=== PATIENT | female | born 1945 | race Caucasian/White ===

== ENCOUNTER 2016-07-27 12:50 | Outpatient (CLI) | payer MEDICARE ==
[2016-07-27 14:29] LABS: ALT (SGPT) 7 U/L (0-55); AST (SGOT) 17 U/L (5-34); Albumin 4.3 g/dL (3.4-4.8); Alkaline Phosphatase 115 U/L (40-150); Anion Gap 14 mmol/L (10-20); BUN (Urea Nitrogen) 18 mg/dL (9.8-20.1); Bilirubin, Total 0.3 mg/dL (0.2-1.2); Calc. Creatinine Clearance 0 mL/min (70-130); Calcium 10.4 mg/dL (7.8-10.44); Carbon Dioxide 25 mmol/L (23-31); Chloride 105 mmol/L (98-107); Estimated GFR-MDRD 55; Globulin 2.5 g/dL (2.4-3.5); Glucose 91 mg/dL (80-115); Potassium 4.6 mmol/L (3.5-5.1); Protein, Total 6.8 g/dL (5.8-8.1); Sodium 139 mmol/L (136-145)
[2016-07-27 15:12] LABS: #Basophils 0.1 thou/uL (0.0-0.2); #Eosinphils 0.6 thou/uL (0.0-0.7); #Lymphocytes 2.1 thou/uL (1.20-3.40); #Monocytes 0.6 thou/uL (0.11-0.59); %Basophils 0.9 % (0.0-1.0); %Eosinophils 6.7 % (0.0-10.0); %Lymphocytes 25.3 % (21.0-51.0); %Monocytes 7.5 % (0.0-10.0); %Neutrophils 59.6 % (42.0-75.0); Anisocytosis SLIGHT = 6-15 cells (100X) (0-5/hpf); Hemoglobin 10.1 g/dL (12.0-16.0); MDiff Complete? YES; Mean Corpuscular HGB CONC 30.3 g/dL (32.0-36.0); Mean Corpuscular Hemoglobin 23.5 pg (27.0-31.0); Mean Corpuscular Volume 77.8 fl (81.0-99.0); Mean Platelet Volume 8.8 fL (7.4-10.4); Microcytosis SLIGHT = 6-15 cells (100X) (0-5/hpf); PLT Morphology Comment Appears Adequate; Platelet Count 224 thou/uL (130-400); RBC Distribution Width 14.5 % (11.5-14.5); Red Blood Cell (RBC) Count 4.28 mill/uL (4.20-5.40); White Blood Cell (WBC) Count 8.4 thou/uL (4.8-10.8)
== END 2016-07-27 12:51 | disposition home or self-care (01) ==
LOC: NAVSJIPCSP 12:50
PROVIDERS: ATTEND Internal Medicine
DX: Z01.818 Encounter for other preprocedural examination (principal)
CPT/HCPCS: 36415; 80053; 85025

== ENCOUNTER 2016-08-16 13:30 | Outpatient (CLI) | payer MEDICARE ==
[2016-08-16 14:42] LABS: ALT (SGPT) 7 U/L (0-55); AST (SGOT) 20 U/L (5-34); Albumin 3.9 g/dL (3.4-4.8); Alkaline Phosphatase 109 U/L (40-150); Anion Gap 15 mmol/L (10-20); BUN (Urea Nitrogen) 16 mg/dL (9.8-20.1); Bilirubin, Direct 0.2 mg/dL (0.1-0.3); Bilirubin, Total 0.4 mg/dL (0.2-1.2); Calc. Creatinine Clearance 0 mL/min (70-130); Calcium 9.5 mg/dL (7.8-10.44); Carbon Dioxide 21 mmol/L (23-31); Chloride 106 mmol/L (98-107); Cholesterol 128 mg/dL (< 200 Desired); Estimated GFR-MDRD 56; Glucose 97 mg/dL (80-115); HDL Cholesterol 42 mg/dL (>60 Neg Risk); LDL Cholesterol, Calculated 71 mg/dL; Lipase 21 U/L (8-78); Potassium 3.2 mmol/L (3.5-5.1); Protein, Total 6.4 g/dL (5.8-8.1); Sodium 139 mmol/L (136-145); Triglycerides 77 mg/dL (Less than 150)
[2016-08-16 16:41] LABS: Band 9 % (5-11); Eosinophils 1 % (0-10); Hemoglobin 9.5 g/dL (12.0-16.0); Lymphocytes 23 % (21-51); MDiff Complete? YES; Mean Corpuscular HGB CONC 30.2 g/dL (32.0-36.0); Mean Corpuscular Hemoglobin 22.5 pg (27.0-31.0); Mean Corpuscular Volume 74.5 fl (81.0-99.0); Mean Platelet Volume 9.6 fL (7.4-10.4); Microcytosis SLIGHT = 6-15 cells (100X) (0-5/hpf); Monocytes 1 % (0-10); Myelocyte 1 % (0-0); Neutrophil 63 % (42-75); Platelet Count 198 thou/uL (130-400); Polychromasia SLIGHT = 2-3 cells (100X) (0-2/hpf); Red Blood Cell (RBC) Count 4.21 mill/uL (4.20-5.40); White Blood Cell (WBC) Count 6.9 thou/uL (4.8-10.8)
[2016-08-16 21:20] LABS: Bilirubin Negative (Negative); Blood, Urine Negative (Negative); Glucose, Urine (Dipstick) Negative (Negative); Leukocyte Moderate (Negative); Nitrite Positive (Negative); Protein, Urine (Dipstick) Negative (Neg-Trace); Specific Gravity, Urine 1.015 (1.005-1.030); Urobilinogen 0.2 mg/dL (0.2-1.0); pH, Urine 5.5 (5.0-9.0)
[2016-08-16 21:21] LABS: Clarity SL HAZY (Clear)
[2016-08-16 21:53] LABS: Bacteria/HPF 4+ HPF (None Seen); RBC/HPF 0-3 HPF (0-3); Renal Epithelial 0-3 HPF (0-3)
== END 2016-08-16 13:31 | disposition home or self-care (01) ==
LOC: NAVSJIPCSP 13:30 → NAV LAB 13:31
PROVIDERS: ATTEND Nurse Practitioner Family
DX: R19.7 Diarrhea, unspecified (principal); R11.0 Nausea; R39.9 Unspecified symptoms and signs involving the genitourinary system
CPT/HCPCS: 80048; 80061; 80076; 81003; 81015; 83690; 85025; 87086

== ENCOUNTER 2016-08-17 12:17 | Emergency (ER) | payer MEDICARE ==
[2016-08-17] MEDS ORDERED: Ondansetron HCl/PF 4 MG/2 ML Vial ONE (12:39)
[2016-08-17] MEDS ORDERED: Sodium Chloride 0.9% 1,000 ML ONE (12:39)
[2016-08-17] MEDS ORDERED: Promethazine HCl 25 MG/ML VIAL ONE (12:58)
[2016-08-17 13:04] LABS: Anion Gap 17 mmol/L (10-20); Globulin 2.8 g/dL (2.4-3.5)
[2016-08-17 13:35] LABS: ALT (SGPT) 11 U/L (0-55); AST (SGOT) 37 U/L (5-34); Alkaline Phosphatase 145 U/L (40-150); BUN (Urea Nitrogen) 32 mg/dL (9.8-20.1); Bilirubin, Total 0.5 mg/dL (0.2-1.2); Calc. Creatinine Clearance 0 mL/min (70-130); Calcium 9.7 mg/dL (7.8-10.44); Carbon Dioxide 22 mmol/L (23-31); Chloride 103 mmol/L (98-107); Estimated GFR-MDRD 34; Glucose 136 mg/dL (80-115); Magnesium 1.9 mg/dL (1.6-2.6); Phosphorus 3.7 mg/dL (2.3-4.7); Potassium 3.6 mmol/L (3.5-5.1); Protein, Total 6.8 g/dL (5.8-8.1); Sodium 138 mmol/L (136-145)
[2016-08-17] MEDS ORDERED: Sodium Chloride 0.9% 0 ML ONE (13:39)
[2016-08-17] MEDS ORDERED: Sodium Chloride 0.9% 100 ML ONE (13:39)
[2016-08-17] MEDS ORDERED: Prochlorperazine 10 MG/2 ML VIAL ONE (13:39)
[2016-08-17 13:55] LABS: Mean Corpuscular HGB CONC 30.2 g/dL (32.0-36.0); Mean Corpuscular Hemoglobin 22.4 pg (27.0-31.0); Mean Corpuscular Volume 74.3 fl (81.0-99.0); Mean Platelet Volume 9.4 fL (7.4-10.4); Platelet Count 208 thou/uL (130-400); RBC Distribution Width 14.9 % (11.5-14.5); Red Blood Cell (RBC) Count 4.45 mill/uL (4.20-5.40); White Blood Cell (WBC) Count 7.7 thou/uL (4.8-10.8)
[2016-08-17 13:56] LABS: Band 9 % (5-11); Lymphocytes 15 % (21-51); MDiff Complete? YES; Monocytes 8 % (0-10); Neutrophil 68 % (42-75)
[2016-08-17 13:57] LABS: Anisocytosis SLIGHT = 6-15 cells (100X) (0-5/hpf); Hypochromia SLIGHT = 6-15 cells (100X) (0-5/hpf); Microcytosis SLIGHT = 6-15 cells (100X) (0-5/hpf); PLT Morphology Comment Appears Adequate
--- NOTE | 2016-08-17 14:10 | RAD ---
ACUTE ABDOMINAL SERIES FIVE VIEWS: History: New onset nausea, vomiting and diarrhea with fever and chills. FINDINGS: There is abnormal air filled distention of loops of bowel within the abdomen. No free air is seen be neath the hemidiaphragms. Frontal view of chest reveals no lobar consolidation or significant effusi on. There is mild enlargement of the cardiac silhouette. Electronic device overlies the abdomen and pelvis with leads overlying the thoracic spine. IMPRESSION: Evidence of bowel obstruction by radiographic imaging. Recommend follow up with CT for further asses sment. Code T POS: [facility]
[2016-08-17] MEDS ORDERED: Lidocaine Viscous Sol 2% 15 ml UD Cup ONE (14:46)
[2016-08-17] MEDS ORDERED: Benzocaine 20% Spray 60 ML CAN ONE (14:46)
--- NOTE | 2016-08-17 14:59 | CT ---
CT ABDOMEN AND PELVIS WITHOUT IV CONTRAST: Date: 08/17/16 Multiple axial tomograms obtained through abdomen and pelvis without IV enhancement. HISTORY: Nausea and vomiting. Fever and chills. FINDINGS: Images through the lung bases appear clear. Liver and spleen appear unremarkable. Post cholecystectomy changes are noted. There is a small slidi ng diaphragmatic hernia. Stomach and duodenum appear unremarkable. Stomach is distended from ingeste d material. Adrenal glands appear normal. There is a 4.8 cm cyst superior right kidney. There are other low density areas involving the mid an d inferior right kidney which suggests cysts but these are poorly defined and were poorly characteri zed on this unenhanced exam. There is a low density area involving the medial upper left kidney mariana uring in the 3.0 cm range, which have densities upper normal for cystic lesion. Other low densities areas in the left kidney probably represent cysts, but are not well characterized or delineated. There is no hydronephrosis. No evidence of urinary tract calculus. The bladder is distended. There are dilated loops of small bowel with several of these loops measuring up to 4.0 cm diameter. The distal small bowel loops are more decompressed measuring in the 2.0 cm range. Findings are suspi cious for partial small bowel obstruction in mid small bowel. There appears to be evidence of a gastric bypass type procedure. There is radiopaque suture seen at the EG junction and appears to be a jejunal anastomosis at this location. The colon is predominantly nondistended and not well evaluated. The aorta is calcified, but normal caliber. Images through the pelvis show evidence of hysterectomy. Degenerative spine changes are seen with severe facet hypertrophy resulting in central canal stenosi s in the lower lumbar spine. IMPRESSION: 1. Evidence of gastric bypass type procedure. The stomach is distended with ingested material. Ther e is dilatation of proximal and mid small bowel loops with decompression of more distal small bowel loops suggesting a mid small bowel obstruction. 2. There are numerous low density lesions involving both kidneys suggesting bilateral cysts, althou gh these are poorly defined and characterized. There is at least one hyperdense exophytic lesion dimitrios suring 1.0 cm from the superior posterior left kidney which is a complex lesion. Recommend further e valuation with contrasted CT scan of abdomen to further define these renal lesions. 3. 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 Ep idural leads are seen in place with an electronic device implanted under the skin of the posterior l eft flank region. POS: [facility]
--- NOTE | 2016-08-17 16:07 | RAD ---
PORTABLE AP CHEST X-RAY: 08/17/16 HISTORY: Nasogastric tube placement. FINDINGS: Compared to study on 08/17/16 at 1311 hours. The provided images are underpenetrated which limits detail. There is partial visualization of the d orsal column stimulator leads overlying the thoracic spine. There is a radiopaque density overlying the mediastinum, but this is not well evaluated. This may represent the nasogastric tube, but this c annot be confirmed based on this examination. Repeat imaging is recommended given that the distal po rtion of the nasogastric tube is not visualized. The cardiac silhouette is magnified by projection but does appear mildly enlarged. Pulmonary vascula ture is within normal limits. No other interval change. IMPRESSION: Suboptimal examination for evaluation of the nasogastric tube due to the technique of study. Repeat imaging is recommended in attempt to better evaluate the nasogastric tube position. POS: [facility]
--- NOTE | 2016-08-17 17:12 | RAD ---
FRONTAL VIEW ABDOMEN 08/17/16 COMPARISON: Chest radiograph earlier same day. CLINICAL HISTORY: Tube evaluation. FINDINGS: Prior enteric catheter is not visualized. There are radiopaque leads overlying the upper abdomen, no t further localized. Bowel distention is present, as is depicted on preceding CT exam, same day. IMPRESSION: Prior enteric catheter overlying the chest is not demonstrated. Correlate for interval removal. There are radiopaque leads overlying the upper abdomen, not further characterized on the basis of th is exam. POS: [facility]
== END 2016-08-17 16:44 | disposition short-term general hospital (02) ==
LOC: NAV ERS 12:17
DX: K56.60 Unspecified intestinal obstruction (principal); D64.9 Anemia, unspecified; N28.9 Disorder of kidney and ureter, unspecified; I10 Essential (primary) hypertension; Z79.899 Other long term (current) drug therapy
CPT/HCPCS: 71010; 74000; 74022; 74176; 80053; 83735; 84100; 85025; 94760; 96365; 96367; 96375; J0780; J2270; J2405; J2550; J7050

== ENCOUNTER 2016-09-07 11:01 | Outpatient (CLI) | payer MEDICARE ==
[2016-09-07 13:13] LABS: ALT (SGPT) Less than 6 U/L (8-55); AST (SGOT) 14 U/L (5-34); Albumin 4.1 g/dL (3.4-4.8); Alkaline Phosphatase 97 U/L (40-150); Anion Gap 19 mmol/L (10-20); BUN (Urea Nitrogen) 15 mg/dL (9.8-20.1); Bilirubin, Total 0.3 mg/dL (0.2-1.2); Calc. Creatinine Clearance 0 mL/min (70-130); Calcium 10.4 mg/dL (7.8-10.44); Carbon Dioxide 21 mmol/L (23-31); Chloride 107 mmol/L (98-107); Estimated GFR-MDRD 55; Globulin 2.8 g/dL (2.4-3.5); Glucose 91 mg/dL (80-115); Potassium 3.9 mmol/L (3.5-5.1); Protein, Total 6.9 g/dL (6.0-8.3); Sodium 143 mmol/L (136-145)
[2016-09-07 13:27] LABS: #Basophils 0.1 thou/uL (0.0-0.2); #Eosinphils 0.9 thou/uL (0.0-0.7); #Lymphocytes 1.9 thou/uL (1.20-3.40); #Monocytes 0.6 thou/uL (0.11-0.59); #Neutrophils 4.6 thou/uL (1.40-6.50); %Basophils 0.8 % (0.0-1.0); %Eosinophils 11.1 % (0.0-10.0); %Lymphocytes 23.7 % (21.0-51.0); %Monocytes 7.6 % (0.0-10.0); %Neutrophils 56.7 % (42.0-75.0); Anisocytosis SLIGHT = 6-15 cells (100X) (0-5/hpf); Hemoglobin 9.2 g/dL (12.0-16.0); MDiff Complete? YES; Mean Corpuscular Hemoglobin 21.6 pg (27.0-31.0); Mean Corpuscular Volume 74.5 fl (81.0-99.0); Mean Platelet Volume 7.6 fL (7.4-10.4); Microcytosis SLIGHT = 6-15 cells (100X) (0-5/hpf); PLT Morphology Comment Appears Adequate; Platelet Count 264 thou/uL (130-400); RBC Distribution Width 15.3 % (11.5-14.5); Red Blood Cell (RBC) Count 4.28 mill/uL (4.20-5.40); White Blood Cell (WBC) Count 8.1 thou/uL (4.8-10.8)
== END 2016-09-07 11:02 | disposition home or self-care (01) ==
LOC: NAVSJIPCSP 11:01
PROVIDERS: ATTEND Internal Medicine
DX: D50.9 Iron deficiency anemia, unspecified (principal); R00.1 Bradycardia, unspecified; I10 Essential (primary) hypertension
CPT/HCPCS: 36415; 80053; 82728; 85025

== ENCOUNTER 2016-11-14 11:22 | Outpatient (CLI) | payer MEDICARE ==
[2016-11-14 13:20] LABS: Vitamin D, 25 Hydroxy 35.2 ng/ml (> 30.0)
[2016-11-15 19:33] LABS: Ferritin 14.9 ng/mL (10-291)
== END 2016-11-14 11:23 | disposition home or self-care (01) ==
LOC: NAVSJIPCSP 11:22
PROVIDERS: ATTEND Internal Medicine
DX: Z48.815 Encounter for surgical aftercare following surgery on the digestive system (principal); Z98.84 Bariatric surgery status
CPT/HCPCS: 36415; 82306; 82728

== ENCOUNTER 2018-04-21 10:10 | Emergency (ER) | payer MEDICARE ==
[2018-04-21] MEDS ORDERED: Ondansetron PF 4 MG/2 ML Vial ONE ×2 (10:43→12:23)
[2018-04-21] MEDS ORDERED: Sodium Chloride 0.9% 1,000 ML ONE (10:43)
[2018-04-21 11:06] LABS: Bilirubin Negative (Negative); Blood, Urine Negative (Negative); Clarity Clear (Clear); Glucose, Urine (Dipstick) Negative (Negative); Leukocyte Large (Negative); Nitrite Negative (Negative); Protein, Urine (Dipstick) Negative (Neg-Trace); Urobilinogen 0.2 mg/dL (0.2-1.0); pH, Urine 5.5 (5.0-9.0)
[2018-04-21 11:12] LABS: #Basophils 0.1 thou/uL (0.0-0.2); #Eosinphils 0.2 thou/uL (0.0-0.7); #Lymphocytes 1.2 thou/uL (1.20-3.40); #Monocytes 0.8 thou/uL (0.11-0.59); #Neutrophils 7.7 thou/uL (1.40-6.50); %Basophils 0.9 % (0.0-1.0); %Eosinophils 2.5 % (0.0-10.0); %Lymphocytes 11.6 % (21.0-51.0); %Monocytes 7.8 % (0.0-10.0); %Neutrophils 77.3 % (42.0-75.0); Hemoglobin 11.9 g/dL (12.0-16.0); Mean Corpuscular HGB CONC 31.1 g/dL (32.0-36.0); Mean Corpuscular Hemoglobin 27.2 pg (27.0-31.0); Mean Corpuscular Volume 87.3 fL (78.0-98.0); Platelet Count 226 thou/uL (130-400); RBC Distribution Width 13.7 % (11.5-14.5); Red Blood Cell (RBC) Count 4.38 mill/uL (4.20-5.40)
[2018-04-21 11:13] LABS: Bacteria/HPF 1+ HPF (None Seen); RBC/HPF None Seen HPF (0-3); Squamous Epithelial 0-3 HPF (0-3)
[2018-04-21 11:27] LABS: ALT (SGPT) 6 U/L (8-55); AST (SGOT) 17 U/L (5-34); Albumin 4.1 g/dL (3.4-4.8); Alkaline Phosphatase 126 U/L (40-150); Anion Gap 15 mmol/L (10-20); BUN (Urea Nitrogen) 24 mg/dL (9.8-20.1); Bilirubin, Total 0.4 mg/dL (0.2-1.2); Calc. Creatinine Clearance 0 mL/min (70-130); Calcium 10.3 mg/dL (7.8-10.44); Carbon Dioxide 18 mmol/L (23-31); Chloride 110 mmol/L (98-107); Estimated GFR-MDRD 51; Globulin 2.7 g/dL (2.4-3.5); Glucose 98 mg/dL (83-110); Potassium 3.7 mmol/L (3.5-5.1); Protein, Total 6.8 g/dL (6.0-8.3); Sodium 139 mmol/L (136-145)
[2018-04-21] MEDS ORDERED: Levofloxacin 500 mg/D5W 100 ml Premix Bag ONE (12:15)
--- NOTE | 2018-04-21 13:19 | RAD ---
CHEST 2 VIEWS: HISTORY: Vomiting. Chest pain. COMPARISON: 08/17/2016. FINDINGS: Cardiac silhouette is magnified by projection. Pulmonary vasculature upper limits of normal. Medias tinum is midline with aortic calcification. No lobar consolidation, pneumothorax, or pleural fluid. Postoperative changes right shoulder. IMPRESSION: 1. Atherosclerosis. 2. No active cardiopulmonary abnormalities are otherwise demonstrated. POS: [facility]
--- NOTE | 2018-04-21 13:20 | RAD ---
ABDOMEN 2 VIEWS: HISTORY: Abdominal pain. Vomiting. FINDINGS: Air and fluid are present throughout the colon. The air fluid levels on the upright view are consist ent with colon. No evidence of free intraperitoneal gas. Metallic clips throughout the abdomen. Ph leboliths project over the pelvis. IMPRESSION: Fluid throughout the colon. Otherwise, nonspecific bowel gas pattern. POS: [facility]
== END 2018-04-21 12:57 | disposition home or self-care (01) ==
LOC: NAV ERS 10:10
DX: K52.9 Noninfective gastroenteritis and colitis, unspecified (principal); I10 Essential (primary) hypertension; Z79.899 Other long term (current) drug therapy; Z79.82 Long term (current) use of aspirin
CPT/HCPCS: 71046; 74019; 80053; 81003; 81015; 82274; 83690; 85025; 87045; 87046; 87077; 87086; 87186; 87328; 87329; 87449; 87899; 96361; 96374; 96375; 96376; J1956; J2405; J7050

== ENCOUNTER 2020-07-05 11:27 | Emergency (ER) | payer MEDICARE ==
[2020-07-05 12:26] LABS: Bilirubin Negative (Negative); Blood, Urine Negative (Negative); Clarity Clear (Clear); Glucose, Urine (Dipstick) Negative (Negative); Ketone, Urine Negative (Negative); Leukocyte Trace (Negative); Nitrite Negative (Negative); Protein, Urine (Dipstick) Negative (Neg-Trace); Specific Gravity, Urine 1.015 (1.005-1.030); Urobilinogen 0.2 mg/dL (Less than 2); pH, Urine 5.5 (5.0-9.0)
[2020-07-05 12:49] LABS: #Basophils 0.1 thou/uL (0.0-0.2); #Lymphocytes 1.8 thou/uL (1.20-3.40); #Monocytes 0.3 thou/uL (0.11-0.59); #Neutrophils 10.8 thou/uL (1.40-6.50); %Basophils 0.6 % (0.0-1.0); %Eosinophils 0.1 % (0.0-10.0); %Lymphocytes 13.7 % (21.0-51.0); %Monocytes 2.4 % (0.0-10.0); %Neutrophils 83.3 % (42.0-75.0); Mean Corpuscular HGB CONC 31.5 g/dL (32.0-36.0); Mean Corpuscular Hemoglobin 29.6 pg (27.0-31.0); Mean Corpuscular Volume 93.9 fL (78.0-98.0); Mean Platelet Volume 7.4 fL (7.4-10.4); Platelet Count 198 thou/uL (130-400); RBC Distribution Width 17.6 % (11.5-14.5); Red Blood Cell (RBC) Count 1.68 mill/uL (4.20-5.40)
[2020-07-05 12:56] LABS: ALT (SGPT) 6 U/L (8-55); AST (SGOT) 14 U/L (5-34); Albumin 3.2 g/dL (3.4-4.8); Alkaline Phosphatase 73 U/L (40-110); Anion Gap 16 mmol/L (10-20); BUN (Urea Nitrogen) 59 mg/dL (9.8-20.1); Bilirubin, Total 0.2 mg/dL (0.2-1.2); CK (CPK) 29 U/L (29-168); Calc. Creatinine Clearance 0 mL/min (70-130); Calcium 9.6 mg/dL (7.8-10.44); Carbon Dioxide 14 mmol/L (23-31); Chloride 117 mmol/L (98-107); Globulin 1.8 g/dL (2.4-3.5); Glucose 125 mg/dL (83-110); Sodium 143 mmol/L (136-145)
[2020-07-05] MEDS ORDERED: Sodium Chloride 0.9% 100 ML ONE (13:00)
[2020-07-05] MEDS ORDERED: cefTRIAXone\\ROCEPHIN 1 GM VIAL ONE (13:00)
[2020-07-05 13:01] LABS: Bacteria/HPF Rare-Few HPF (None Seen); RBC/HPF 0-3 HPF (0-3)
[2020-07-05] MEDS ORDERED: Sodium Chloride 0.9% 1,000 ML ONE (13:10)
[2020-07-05 15:21] LABS: Lactic Acid 2.6 mmol/L (0.5-2.2)
== END 2020-07-05 13:59 | disposition short-term general hospital (02) ==
LOC: NAV ERS 11:27
DX: A41.9 Sepsis, unspecified organism (principal); J18.9 Pneumonia, unspecified organism; K92.2 Gastrointestinal hemorrhage, unspecified; I10 Essential (primary) hypertension; Z79.82 Long term (current) use of aspirin; Z79.899 Other long term (current) drug therapy
CPT/HCPCS: 51701; 71045; 80053; 81003; 81015; 82550; 83605; 83880; 84484; 85025; 86850; 86900; 86901; 87040; 87077; 87086; 87149; 87804; 93005; 96365; 96367; 96375; J0696; J3490; J7050

== ENCOUNTER 2020-12-15 22:00 | Emergency (ER) | payer MEDICARE ==
[~2020-12-15 22:00] MED LIST: Iopamidol 370 76% 100 ML VIAL ONE
[2020-12-15 23:22] LABS: Hemoglobin 11.1 g/dL (12.0-16.0); Mean Corpuscular HGB CONC 29.1 g/dL (32.0-36.0); Mean Corpuscular Hemoglobin 24.3 pg (27.0-31.0); Mean Corpuscular Volume 83.4 fL (78.0-98.0); Mean Platelet Volume 7.8 fL (7.4-10.4); Platelet Count 204 thou/uL (130-400); RBC Distribution Width 19.9 % (11.5-14.5); Red Blood Cell (RBC) Count 4.59 mill/uL (4.20-5.40); White Blood Cell (WBC) Count 8.4 thou/uL (4.8-10.8)
[2020-12-15 23:33] LABS: ALT (SGPT) 9 U/L (8-55); AST (SGOT) 22 U/L (5-34); Albumin 3.9 g/dL (3.4-4.8); Alkaline Phosphatase 107 U/L (40-110); Anion Gap 13 mmol/L (10-20); BUN (Urea Nitrogen) 16 mg/dL (9.8-20.1); Bilirubin, Total 0.3 mg/dL (0.2-1.2); Calc. Creatinine Clearance 0 mL/min (70-130); Calcium 10.3 mg/dL (7.8-10.44); Carbon Dioxide 21 mmol/L (23-31); Chloride 105 mmol/L (98-107); Globulin 3.1 g/dL (2.4-3.5); Glucose 116 mg/dL (83-110); Lipase 69 U/L (8-78); Potassium 4.1 mmol/L (3.5-5.1); Sodium 135 mmol/L (136-145)
[2020-12-15] MEDS ORDERED: Morphine 4 MG/ML VIAL ONE (23:38)
[2020-12-15] MEDS ORDERED: Promethazine HCl 25 MG/ML VIAL ONE (23:39)
[2020-12-15] MEDS ORDERED: Sodium Chloride 0.9% 1,000 ML ONE (23:39)
[2020-12-15 23:54] LABS: #Basophils 0.1 thou/uL (0.0-0.2); #Eosinphils 0.7 thou/uL (0.0-0.7); #Lymphocytes 1.4 thou/uL (1.20-3.40); #Monocytes 0.8 thou/uL (0.11-0.59); #Neutrophils 5.5 thou/uL (1.40-6.50); %Basophils 0.7 % (0.0-1.0); %Lymphocytes 16.6 % (21.0-51.0); %Monocytes 9.2 % (0.0-10.0); %Neutrophils 65.4 % (42.0-75.0); Hypochromia SLIGHT = 6-15 cells (100X) (0-5/hpf); MDiff Complete? YES; Platelet Morphology Comment Appears Adequate
[2020-12-16 00:46] LABS: Bilirubin Negative (Negative); Blood, Urine Trace (Negative); Glucose, Urine (Dipstick) Negative (Negative); Ketone, Urine Negative (Negative); Leukocyte Large (Negative); Nitrite Positive (Negative); Protein, Urine (Dipstick) Negative (Neg-Trace); Specific Gravity, Urine 1.015 (1.005-1.030); Urobilinogen 0.2 mg/dL (Less than 2); pH, Urine 5.5 (5.0-9.0)
[2020-12-16 00:47] LABS: Clarity Hazy (Clear)
[2020-12-16 00:52] LABS: RBC/HPF 0-3 HPF (0-3)
[2020-12-16 00:53] LABS: Bacteria/HPF 3+ HPF (None Seen); Squamous Epithelial None Seen HPF (0-3)
[2020-12-16] MEDS ORDERED: cloNIDine 0.1 MG TAB ONE (02:16)
[2020-12-16] MEDS ORDERED: Pantoprazole 40 MG VIAL ONE (02:17)
[2020-12-16] MEDS ORDERED: Milk Of Magnesia 30 ML UDCUP ONE (02:17)
[2020-12-16] MEDS ORDERED: Lidocaine Viscous Sol 2% 15 ml UD Cup ONE (02:17)
== END 2020-12-16 02:35 | disposition home or self-care (01) ==
LOC: NAV ERS 22:00
DX: R10.10 Upper abdominal pain, unspecified (principal); R19.7 Diarrhea, unspecified; I10 Essential (primary) hypertension; Z79.899 Other long term (current) drug therapy
CPT/HCPCS: 74177; 80053; 81003; 81015; 83690; 84484; 85025; 93005; 96374; 96375; C9113; J2270; J2550; J7050; Q9967

== ENCOUNTER 2020-12-31 10:53 | Outpatient (CLI) | payer MEDICARE | END 2020-12-31 10:54 | disposition home or self-care (01) | LOC: NAV RAD 10:53 | DX: M46.1 Sacroiliitis, not elsewhere classified (principal); M47.818 Spondylosis without myelopathy or radiculopathy, sacral and sacrococcygeal region; M16.0 Bilateral primary osteoarthritis of hip | CPT/HCPCS: 72170 ==

== ENCOUNTER 2021-03-25 04:16 | Observation (INO) | payer MEDICARE ==
[2021-03-25 04:54] LABS: Hemoglobin 10.7 g/dL (12.0-16.0); Mean Corpuscular Volume 87.3 fL (78.0-98.0); Red Blood Cell (RBC) Count 4.15 mill/uL (4.20-5.40); White Blood Cell (WBC) Count 8.1 thou/uL (4.8-10.8)
[2021-03-25 04:55] LABS: #Monocytes 0.5 thou/uL (0.11-0.59); #Neutrophils 6.5 thou/uL (1.40-6.50); %Basophils 0.5 % (0.0-1.0); %Eosinophils 0.3 % (0.0-10.0); %Lymphocytes 12.7 % (21.0-51.0); %Monocytes 6.3 % (0.0-10.0); %Neutrophils 80.2 % (42.0-75.0); Manual Diff?? NO; Mean Corpuscular HGB CONC 29.6 g/dL (32.0-36.0); Mean Corpuscular Hemoglobin 25.9 pg (27.0-31.0); Mean Platelet Volume 6.9 fL (7.4-10.4); Platelet Count 249 thou/uL (130-400); RBC Distribution Width 14.3 % (11.5-14.5)
[2021-03-25 05:00] LABS: INR-International Normal Ratio 1.2; PTT 34.8 sec (22.9-36.1); Prothrombin Time 15.6 sec (12.0-14.7)
[2021-03-25 05:01] LABS: ALT (SGPT) 8 U/L (8-55); AST (SGOT) 18 U/L (5-34); Albumin 3.8 g/dL (3.4-4.8); Alkaline Phosphatase 99 U/L (40-110); Anion Gap 12 mmol/L (10-20); BUN (Urea Nitrogen) 17 mg/dL (9.8-20.1); Bilirubin, Total 0.4 mg/dL (0.2-1.2); Calc. Creatinine Clearance 0 mL/min (70-130); Calcium 10.3 mg/dL (7.8-10.44); Carbon Dioxide 23 mmol/L (23-31); Chloride 107 mmol/L (98-107); Glucose 133 mg/dL (83-110); Potassium 3.8 mmol/L (3.5-5.1); Protein, Total 6.8 g/dL (5.8-8.1); Sodium 138 mmol/L (136-145)
[2021-03-25] MEDS ORDERED: Amoxicillin/Potassium Clav 875 MG TAB ONE (05:22)
[2021-03-25 05:29] LABS: SARS-CoV-2 NAA Rapid Test Not Detected (NotDetected)
[2021-03-25] MEDS ORDERED: Nitroglycerin 2% Ointment 1 INCH/1 GM Packet ONE (05:37)
[2021-03-25 06:13] VITALS: BMI 27.3
[2021-03-25] MEDS ORDERED: Acetaminophen 325 MG TAB PO PRN (06:15)
[2021-03-25 08:02] VITALS: TEMP 98.5
[2021-03-25] MEDS ORDERED: Amoxicillin/Potassium Clav 875 MG TAB PO SCH (09:00)
[2021-03-25] MEDS ORDERED: Nitroglycerin 2% Ointment 1 INCH/1 GM Packet TOP SCH (12:00)
[2021-03-25 12:29] VITALS: BP 187/83
[2021-03-25] MEDS: cloNIDine 0.1 MG TAB PO SCH ×2 (13:54→13:57)
[2021-03-25] MEDS ORDERED: cloNIDine 0.1 MG TAB PO SCH (21:00)
[2021-03-25] MEDS ORDERED: Flecainide 50 MG TAB PO SCH (21:00)
[2021-03-25] MEDS ORDERED: Apixaban 5 MG TAB PO SCH (21:00)
[2021-03-25] MEDS ORDERED: Lisinopril 20 MG TAB PO SCH (21:00)
[2021-03-26] MEDS ORDERED: Calcium Carbonate 600 MG + Vit D TAB PO SCH (09:00)
[2021-03-26] MEDS ORDERED: Furosemide 40 MG TAB PO SCH (09:00)
[2021-03-26] MEDS ORDERED: Aspirin 81 mg Enteric Coated Tablet PO SCH (09:00)
[2021-03-26] MEDS ORDERED: Atenolol 25 MG TAB PO SCH (09:00)
[2021-03-28] MEDS ORDERED: Cyanocobalamin (Vitamin B-12) 1,000 MCG TAB PO SCH (09:00)
== END 2021-03-25 14:15 | disposition home or self-care (01) ==
LOC: NAV ERS 04:16 → NAV ACUTE 05:49
PROVIDERS: ADMIT Family Medicine; ATTEND Family Medicine
DX: J18.9 Pneumonia, unspecified organism (principal); I10 Essential (primary) hypertension; I70.0 Atherosclerosis of aorta; I48.91 Unspecified atrial fibrillation; Z85.3 Personal history of malignant neoplasm of breast; Z79.01 Long term (current) use of anticoagulants; Z79.82 Long term (current) use of aspirin; Z79.899 Other long term (current) drug therapy; Z95.0 Presence of cardiac pacemaker; Z20.822 Contact with and (suspected) exposure to COVID-19
CPT/HCPCS: 36415; 71046; 80053; 83605; 83880; 84484; 85025; 85610; 85730; 87040; 93005; G0378; U0002

== ENCOUNTER 2021-04-04 08:49 | Outpatient (CLI) | payer MEDICARE | END 2021-04-04 08:50 | disposition home or self-care (01) | LOC: NAV CT 08:49 | PROVIDERS: ATTEND Nurse Practitioner Family | DX: M46.1 Sacroiliitis, not elsewhere classified (principal); M47.898 Other spondylosis, sacral and sacrococcygeal region; M47.816 Spondylosis without myelopathy or radiculopathy, lumbar region | CPT/HCPCS: 72192 ==

== ENCOUNTER 2021-05-25 15:52 | Outpatient (CLI) | payer MEDICARE | END 2021-05-25 15:53 | disposition home or self-care (01) | LOC: NAV RAD 15:52 | PROVIDERS: ATTEND Internal Medicine Cardiovascular Disease | DX: R06.02 Shortness of breath (principal); R06.00 Dyspnea, unspecified | CPT/HCPCS: 71046 ==